=== PATIENT | female | born 1945 | race African-American/Black ===

== ENCOUNTER 2018-12-18 19:43 | Emergency (ER) | payer MEDICARE ==
[~2018-12-18] VITALS: Ht 175.3 cm; Wt 70.7 kg
[2018-12-18 20:00] VITALS: BP 128/72
[2018-12-18] MEDS ORDERED: AMLO10TA80 MT (20:21)
[2018-12-18] MEDS ORDERED: BENA10TA10 MT (20:22)
[2018-12-18] MEDS ORDERED: HYDR25TA MT (20:23)
== END 2018-12-19 | disposition left against medical advice (07) ==
LOC: ER 19:43
DX: R11.0 Nausea (principal); Z53.21 Procedure and treatment not carried out due to patient leaving prior to being seen by health care provider

== ENCOUNTER 2018-12-19 13:51 | Emergency (ER) | payer MEDICARE ==
[~2018-12-19] VITALS: Ht 175.3 cm; Wt 73.0 kg
[~2018-12-19 13:51] MED LIST: AMLO10TA80 MT; BENA10TA10 MT; HYDR25TA MT
[2018-12-19 16:39] LABS: BASOPHILS % 1.3 % (0.0-2.0); EOSINOPHILS % 1.6 % (0.0-5.0); HEMATOCRIT. 42.1 % (36.0-48.0); HEMOGLOBIN. 15.1 g/dL (12.0-16.0); LYMPHOCYTES % 26.7 % (20.0-50.0); MEAN CORPUSCULAR HEMOGLOBIN 35.8 pg (28.0-32.0); MEAN CORPUSCULAR VOLUME 100.1 fL (81.0-99.0); MEAN PLATELET VOLUME 8.5 fl (7.4-10.4); MONOCYTES % 10.2 % (2.0-8.0); NEUTROPHILS % 60.2 % (40.0-76.0); PLATELET 275 x1000/uL (130-400); RED BLOOD CELL COUNT 4.21 mill/uL (4.2-5.4); RED CELL DISTRIBUTION WIDTH 12.5 % (11.6-14.6)
[2018-12-19 16:42] LABS: CHLORIDE 99 mEq/L (98-107)
[2018-12-19 17:13] VITALS: BP 130/67
[2018-12-19 17:28] LABS: CLARITY URINE CLEAR (CLEAR); COLOR URINE YELLOW (YELLOW); KETONES URINE TRACE (NEGATIVE); LEUKOCYTE ESTERASE URINE TRACE (NEGATIVE); NITRITE URINE NEGATIVE (NEGATIVE); OCCULT BLOOD URINE NEGATIVE (NEGATIVE); PH URINE 7.5 (4.5-8.0); PROTEIN URINE NEGATIVE (NEGATIVE); SPECIFIC GRAVITY URINE 1.006 (1.005-1.030)
== END 2018-12-19 18:50 | disposition home or self-care (01) ==
LOC: ER 13:51
DX: S06.0X9A Concussion with loss of consciousness of unspecified duration, initial encounter (principal); S09.90XA Unspecified injury of head, initial encounter; F07.81 Postconcussional syndrome; J34.2 Deviated nasal septum; I10 Essential (primary) hypertension; Z79.899 Other long term (current) drug therapy; W01.0XXA Fall on same level from slipping, tripping and stumbling without subsequent striking against object, initial encounter; Y93.89 Activity, other specified; Y92.89 Other specified places as the place of occurrence of the external cause; Y99.8 Other external cause status
CPT/HCPCS: 36415; 70486; 71045; 83880; 84484; 93005; 99284